=== PATIENT | male | born 1980 | race Caucasian/White ===

== ENCOUNTER 2018-08-14 10:37 | Inpatient (IN) ==
--- NOTE | 2018-08-14 10:40 | Discharge Summary ---
<Cody Mesa - Last Filed: 08/14/18 12:11> Date of Encounter: 08/14/18 - Discharge Diagnosis (1) Arthritis of left hip Priority: Primary Status: Chronic (2) Status post total hip replacement, left Priority: Primary Status: Acute (3) Hypertension Priority: Secondary Status: Chronic Qualifiers: Hypertension type: unspecified Qualified Code(s): I10 - Essential (primary) hypertension (4) Obstructive sleep apnea Priority: Secondary Status: Chronic (5) History of pulmonary embolism Priority: Secondary Status: Resolved (6) History of anxiety Priority: Secondary Status: Chronic (7) History of depression Priority: Secondary Status: Chronic (8) History of suicidal ideation Priority: Secondary Status: Chronic (9) Morbid obesity with BMI of 40.0-44.9, adult Priority: Secondary Status: Chronic - Hospital Course Hospital course: Mr. Mulligan is a 38 year old male - Time Spent with Patient Total time spent providing and/or coordinating discharge services: - Discharge Medications Home Medications: Amlodipine Besylate/Benazepril [Lotrel 10-20 mg Capsule] 1 each PO DAILY 08/14/18 [History] Gabapentin [Neurontin] 800 mg PO TID 08/14/18 [History] HydrOXYzine Pamoate [Vistaril] 50 mg PO DAILY PRN 08/14/18 [History] Ibuprofen 800 mg PO TID PRN 08/14/18 [History] Lidocaine 4% CRM (LMX) [Lmx 4] 1 gm TP ONCE 08/14/18 [History] Montelukast Sodium [Singulair] 10 mg PO DAILY 08/14/18 [History] Morphine Sulfate [Arymo ER] 15 mg PO BID PRN 08/14/18 [History] Omeprazole [PriLOSEC] 20 mg PO DAILY 08/14/18 [History] OxyCODONE/APAP 7.5/325 [Percocet 7.5/325 MG] 1 each PO Q6HR PRN 08/14/18 [History] Potassium Chloride [Klor-Con 10] 10 meq PO DAILY 08/14/18 [History] hydroCHLOROthiazide [Hydrochlorothiazide] 12.5 mg PO DAILY 08/14/18 [History] Allergies/Adverse Reactions: Allergy/AdvReac Type Severity Reaction Status Date / Time divalproex sodium Allergy Vomiting Verified 08/14/18 11:15 [From [facility]] Primary care physician: Magen Ramírez MD - Patient Status Disposition: Home Health Service Condition: Good - Discharge Instructions Follow Up With: Magen Ramírez MD [Primary Care Provider] - <Yvonne Ballard - Last Filed: 08/15/18 13:32> Orders not resulted at time of discharge: Pending orders 08/14/18 13:44 Surgical Pathology [PTH] Routine 08/16/18 04:00 Basic Metabolic Panel AM 0400 Hemoglobin and Hematocrit [HEME] AM 0400 Date of Encounter: 08/15/18 Time of Encounter: 12:15 - Discharge Diagnosis (1) Status post total hip replacement, left Priority: Primary Status: Acute (2) Arthritis of left hip Priority: Primary Status: Chronic (3) History of anxiety Priority: Secondary Status: Chronic (4) History of depression Priority: Secondary Status: Chronic (5) History of suicidal ideation Priority: Secondary Status: Chronic (6) Hypertension Priority: Secondary Status: Chronic Qualifiers: Hypertension type: unspecified Qualified Code(s): I10 - Essential (primary) hypertension (7) Morbid obesity with BMI of 40.0-44.9, adult Priority: Secondary Status: Chronic (8) Obstructive sleep apnea Priority: Secondary Status: Chronic (9) History of pulmonary embolism Priority: Secondary Status: Resolved - Hospital Course Hospital course: Mr. Mulligan is a 38 year old male s/p Left Total Hip Replacment robotic-assisted 08/14/18 with history of HTN, BERTRAND, obesity, past history of depression/anxiety an d PE. He did have some postoperative bleeding from incision site which resolved after additional britney were added evening of surgery. Uneventful hospital course otherwise. He participated in therapy. Stable for discharge. Patient seen at bedside, without complaints. A&O x 3 Afebrile, vital signs stable. Labs reviewed. H/H 12.3/36.7 - stable, asymptomatic Pain control: adequate Participating in PT. All questions and concerns addressed. Educated on use of incentive spirometer. Encouraged ambulation and proper hydration. Patient educated on post-operative restrictions and post-operative care. Assessment and plan: Continue with postoperative care Discharge plan: Home , discharge today with home therapy. - Time Spent with Patient Total time spent providing and/or coordinating discharge services: Date of admission: 08/14/18 17:05 Primary care physician: Magen Ramírez MD Consults: 08/14/18 15:59 Consult to Nurse Navigator [CONS] Routine Comment: ortho navigator Consult to Occupational Therapy [CONS] Routine Comment: Evaluate, develop and implement POC Reason for Consult: total hip replacement Does patient have active BEDREST order?: No Is patient medically & hemodynamically stable?: Yes Consult to Physical Therapy [CONS] Routine Comment: Evaluate, develop and implement POC Reason for Consult: total hip replacement Does patient have active BEDREST order?: No Is patient medically & hemodynamically stable?: Yes Consult to Ball Worker [CONS] Routine Reason for SW Consult: post op joint replacement RT Post Op Consult [CONS] Routine Discharging clinician: Cody Mesa Anticipated date of discharge: 08/15/18 Labs on day of discharge: Labs from last 24 hours 08/15/18 08/15/18 08/14/18 05:07 05:07 14:22 Hgb 12.3 L 12.9 Hct 36.7 L 39.9 Sodium 140 Potassium 4.5 Chloride 109 H Carbon Dioxide 26 BUN 22 H Creatinine 0.83 Est GFR ( Amer) > 60 Est GFR (Non-Af Amer) > 60 BUN/Creatinine Ratio 27 H Glucose 143 H Calculated Osmolality 296 Calcium 8.8 - Impressions ITS Impressions Hip X-Ray 08/14/18 10:41 IMPRESSION: Status post left hip arthroplasty without evidence of acute postoperative complication. D/ / 08/14/2018 15:05:19 George Rascon MD / gonzález Interpreting Provider: George Rascon MD - Patient Status Functional capacity at discharge: uses cane/walker Overall status at discharge: patient is back to baseline - Diet and Activity Activity: as per physical therapy Diet: advance to your usual diet
[2018-08-14] MEDS ORDERED: Albuterol 2.5 MG/3 ML NEBULIZER IH ONE (10:51)
[2018-08-14] MEDS ORDERED: CeFAZolin Syr 3,000MG/30 ML 3,000 MG/30 ML SYRINGE IVPB ONE (10:51)
[2018-08-14] MEDS ORDERED: Famotidine 20 MG/2 ML VIAL IVP ONE (11:00)
[2018-08-14] MEDS ORDERED: Acetaminophen IV 1,000 MG/100 ML INFUS..BTL IVPB ONE (11:01)
[2018-08-14] MEDS ORDERED: Pregabalin 75 MG CAPSULE PO ONE (11:01)
[2018-08-14] MEDS: Ringers Solution, Lactated 1,000 ML IVC SCH ×2 (11:04→13:22)
[2018-08-14] MEDS ORDERED: Dexamethasone 4 MG/ML VIAL ONE (11:08)
[2018-08-14] MEDS ORDERED: *HR* FentaNYL (PF) 100 MCG/2 ML VIAL ONE (11:08)
[2018-08-14] MEDS ORDERED: *HR* Succinylcholine 200 MG/10 ML VIAL IVP ONE (11:08)
[2018-08-14] MEDS ORDERED: Lidocaine -MPF 2% 2 ML VIAL ONE (11:08)
[2018-08-14] MEDS ORDERED: *HR* Propofol 200 MG/20 ML VIAL IVP ONE (11:08)
[2018-08-14] MEDS ORDERED: Ondansetron 4 MG/2 ML VIAL ONE (11:08)
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
[2018-08-14] MEDS ORDERED: *HR* Midazolam HCl 2 MG/2 ML VIAL ONE (11:13)
[2018-08-14] MEDS ORDERED: Lidocaine -MPF 4% 5 ML AMPUL ONE (11:56)
[2018-08-14] MEDS ORDERED: Ethanol\\Acetic Acid\\Na Ace\\Ben 1,000 ML IRRIG.SOLN IR ONE (12:00)
--- NOTE | 2018-08-14 12:05 | History & Physical Report ---
Date of Encounter: 08/14/18 Time of Encounter: 12:05 24 Hour HP Update - Instructions Instructions: If the History and Physical is less than 30 days old and was completed prior to A.M. admission and or procedure and has NOT been updated on calendar day of procedure please complete this update prior to performing procedure. - Update Patient reports changes in Medical Condition: No Changes in examination, assessment, or condition: No Changes in Medication: No Preop tests/diagnostics Reviewed: Yes Surgery Remains Indicated: Yes Consent for Planned Operative Procedure(s) Verified: Yes - Pre-Operative Checklist Preoperative Checklist Indicated: No Prophylactic Antibiotic Ordered: Yes Is VTE Prophylaxis Indicated?: Yes
[2018-08-14] MEDS ORDERED: *HR* Morphine Sulfate/PF 10 MG/10 ML AMPUL ONE (12:19)
--- NOTE | 2018-08-14 12:48 | Anesthesia Procedures ---
Date of Encounter: 08/14/18 Time of Encounter: 12:40 Procedures: Anesthesia - Epidural/Spinal Patient ID/Chart reviewed: Yes Patient examined: Yes Supplemental Oxygen Rate (L/min): 2 Sedation: Versed (mg): 2 Sedation: Fentanyl (mcg): 50 Site Prep: Sterile prep and drape, 0.5% Chlorhexidine/Alcohol Patient position: upright Local Anesthetic: Lidocaine 1% Amount of Local Anesthetic used: 5 Spinal Needle Gauge: 24 Spinal Dose: 2.5 ml of 0.5% bupivacaine with 150 mcgs duramorph Procedure: left hip arthroplasty
[2018-08-14] MEDS ORDERED: Propofol 500 MG/50 ML INFUS..BTL ONE (12:51)
[2018-08-14] MEDS ORDERED: *HR* PHENYLEPHRINE 1,000 MCG/10 ML SYRINGE IVP ONE (13:13)
[2018-08-14] MEDS ORDERED: EPHEDrine 50 MG/ML VIAL ONE (13:19)
[2018-08-14] MEDS ORDERED: Ondansetron 4 MG/2 ML VIAL IVP ONE (13:27)
[2018-08-14] MEDS ORDERED: *HR* Promethazine 25 MG/ML VIAL IVP PRN (13:27)
[2018-08-14] MEDS ORDERED: *HR* OxyCODONE Immed Rel 5 MG TABLET PO PRN ×3 (13:27→15:59)
[2018-08-14] MEDS ORDERED: *HR* Meperidine 25 MG/ML SYRINGE IVP PRN (13:27)
--- NOTE | 2018-08-14 14:01 | Orthopedic Operative Note ---
Date of procedure: 08/14/18 Pre-op diagnosis: Left hip arthritis/avascular necrosis Post-op diagnosis: same Procedure: Procedure: Left Total Hip Replacment robotic-assisted Estimated blood loss: 200 cc Hardware: Metal and polyethylene replacement. Lignum DM Cup: 58 cup Femoral 10 size stem Head: 0 head with Bethany Procedural Notes: Grade 4 arthritic changes femoral head acetabular socket, procedure performed with robotic assistance. 2 mm short operative versus nonoperative as measured by preoperative CT Operative procedure: The patient was brought to the operating room and placed on the operating room table. After general anesthesia was administered the patient was placed in the lateral decubitus position with the operative leg up. All pressure points were padded appropriately and the head was stabilized in the neutral position. The operative extremity was prepped and draped in the sterile surgical fashion patient received IV antibiotic prior to skin incision. 3 Steinmann pins were placed in the iliac crest 3 cm proximal to the anterior superior iliac spine this was for the robotic-assisted sensor. This was done through a small 2 cm incision. A standard posterior approach is made to the operative hip, the i ncision was made through the skin and subcutaneous tissue hemostasis was obtained with Bovie cautery. Using careful sharp dissection the fascia was identified and incised exposing the external rotators. The greater trochanter was marked, and length was measured at this time utilizing robotic assistance. The external rotators were released off the greater trochanter and tagged with #2 FiberWire suture. The capsule was T'd open and the hip was brought into internal rotation. Patient noted to have grade 4 arthritic changes femoral head. The femoral neck cut was made at the appropriate level roughly 15 mm proximal to the lesser trochanter aced on preoperative templating. An anterior capsulotomy was performed for the anterior retractor. Soft tissues removed from the acetabulum. Patient noted to have grade 4 arthritic changes acetabulum. The acetabulum reference point was confirmed. The acetabulum was then mapped with robotic assistance. Based on the preoperative plan the acetabulum was reamed in one step with a 57 reamer. The 58 acetabulum was impacted with robotic assistance and 50 degrees of abduction and 14 degrees of anteversion. The hip was brought back in to internal rotation and prepared with the box truck driver followed by the canal finder followed by the reaming process to a size 9/10 broaching process in 20 degrees anteversion. It was broached up to the appropriate size 10 Trial reduction revealed leg lengths close to normal. The femoral implant was impacted in place in 20 degrees of anteversion. Trial reduction found the hip to be stable with 0 head and Bethany. The trials were removed and the real implants were impacted in place. The hip was reduced, patient had robotic confirmed leg length of 9 mm longer than the contralateral side. The hip had excellent stability with forward flexion to 90 degrees adduction of 30 degrees and internal rotation of 60 degrees. The hip had no shuck. The hip sat with an antibacterial solution. It was irrigated out with 2 L of pulse irrigation. The Steinmann pins were removed. The deep tissue was irrigated and closed deep with #1 PDS suture superficially with 0 PDS suture and skin was closed with Dermabond and zip tie. The patient was placed in a sterile dressing and abduction pillow. The patient was extubated and transferred to the recovery room in stable condition. Anesthesia: spinal Surgeon: Cody Mesa Was there an content assistant present: No Estimated blood loss (cc): 200 Condition: stable Disposition: PACU
[2018-08-14] MEDS: *HR* HYDROmorphone (PF) 1 MG/ML SYRINGE IVP PRN ×3 (14:35→14:57)
[2018-08-14 14:47] LABS: Hematocrit 39.9 % (37.5-50.1); Hemoglobin 12.9 g/dL (12.9-16.9)
--- NOTE | 2018-08-14 15:21 | Anesthesia Evaluation Post Op ---
Date of Encounter: 08/14/18 Time of Encounter: 15:20 - Vital Signs Vital Signs: Vital Signs/O2 Sat, Most Current Temp Pulse Resp BP Pulse Ox 98.5 F 79 16 144/65 97 08/14/18 15:17 08/14/18 15:17 08/14/18 15:17 08/14/18 15:17 08/14/18 15:17 - Lungs Lungs: Clear Ascult./Percussion - Airway Airway: Non-obstructed - Cardiovascular Regular Rate - Mental Status Mental Status: Alert & Oriented, Answers Appropriately - Pain Pain Scale: 5 Pain Scale used: Numeric (1 - 10) - Nausea Vomiting Nausea Vomiting: Not Present - Hydration Hydration: Ice chips, Has not voided - Discharge PostOp Status: Transfer Patient to floor
[2018-08-14] MEDS ORDERED: MOM Conc 10 ML UD.LIQ PO PRN (15:59)
[2018-08-14] MEDS ORDERED: Ondansetron 4 MG/2 ML VIAL IVP PRN (15:59)
[2018-08-14] MEDS ORDERED: Sennosides 8.6 MG TABLET PO PRN (15:59)
[2018-08-14] MEDS ORDERED: Lidocaine 4% CREAM (LMX) 5 GM TP SCH (15:59)
[2018-08-14] MEDS ORDERED: Ringers Solution, Lactated 1,000 ML IVC SCH (15:59)
[2018-08-14] MEDS ORDERED: *HR* Morphine Sulfate SR (12 HR) 15 MG TABLET.ER PO PRN (15:59)
[2018-08-14] MEDS ORDERED: Temazepam 15 MG CAPSULE PO PRN (15:59)
[2018-08-14] MEDS ORDERED: Naloxone 0.4 MG/ML INJ IVP PRN (15:59)
[2018-08-14] MEDS ORDERED: hydrOXYzine pamoate 25 MG CAPSULE PO PRN (15:59)
[2018-08-14] MEDS ORDERED: CeFAZolin Syr 3,000MG/30 ML 3,000 MG/30 ML SYRINGE IVPB SCH (16:00)
[2018-08-14] MEDS: Nicotine 21 MG PATCH.TD24 TD SCH (17:43)
[2018-08-14] MEDS: Ibuprofen 800 MG TABLET PO SCH ×2 (17:44→21:31)
[2018-08-14] MEDS: Ascorbic Acid 500 MG TABLET PO SCH (17:44)
[2018-08-14] MEDS: *HR* Enoxaparin 30 MG/0.3 ML SYRINGE SQ SCH (17:48)
[2018-08-14] MEDS: Gabapentin 400 MG CAPSULE PO SCH ×2 (17:54→21:31)
[2018-08-14] MEDS: *HR* OxyCODONE Immed Rel 15 MG TABLET PO PRN ×2 (17:54→21:30)
[2018-08-14] MEDS ORDERED: *HR* Enoxaparin 30 MG/0.3 ML SYRINGE SQ SCH (18:00)
[2018-08-14] MEDS ORDERED: Ketorolac 15 MG/ML VIAL IVP PRN (18:15)
[2018-08-14] MEDS: ceFAZolin sodium 3,000 MG in 0.9 % Sodium Chloride 100 ML IVPB SCH (20:36)
[2018-08-15] MEDS: ceFAZolin sodium 3,000 MG in 0.9 % Sodium Chloride 100 ML IVPB SCH (03:02)
[2018-08-15] MEDS: *HR* OxyCODONE Immed Rel 15 MG TABLET PO PRN ×3 (03:04→13:57)
[2018-08-15] MEDS: *HR* Enoxaparin 30 MG/0.3 ML SYRINGE SQ SCH (05:17)
[2018-08-15 05:37] LABS: Hematocrit 36.7 % (37.5-50.1); Hemoglobin 12.3 g/dL (12.9-16.9)
[2018-08-15 05:59] LABS: BUN/Creatinine Ratio 27 (6-26); Blood Urea Nitrogen 22 mg/dL (6-20); Calcium 8.8 mg/dL (8.6-10.3); Carbon Dioxide 26 mEq/L (23-29); Chloride 109 mEq/L (98-107); Glucose 143 mg/dL (70-105); Osmolality,Calculated 296 (280-300); Potassium 4.5 mEq/L (3.5-5.1); Sodium 140 mEq/L (136-145); eGFR For Non-African Americans > 60 (> 60)
[2018-08-15] MEDS: Nicotine 21 MG PATCH.TD24 TD SCH (08:27)
[2018-08-15] MEDS: Ibuprofen 800 MG TABLET PO SCH ×2 (08:28→13:57)
[2018-08-15] MEDS: Ascorbic Acid 500 MG TABLET PO SCH (08:29)
[2018-08-15] MEDS ORDERED: NON-FORMULARY MEDICATION 1 EACH EACH (Amlodipine Besylate/Benazepril [Lotrel 10-20 Mg Caps PO SCH (09:00)
[2018-08-15] MEDS ORDERED: Multivit/Ca/Min/Fe/FA 1 TAB TABLET PO SCH (09:00)
[2018-08-15] MEDS ORDERED: hydroCHLOROthiazide 25 MG TABLET PO SCH (09:00)
[2018-08-15] MEDS ORDERED: Lisinopril 20 MG TABLET PO SCH (09:00)
[2018-08-15] MEDS ORDERED: amLODIPine 5 MG TABLET PO SCH (09:00)
[2018-08-15] MEDS: Gabapentin 400 MG CAPSULE PO SCH (10:22)
[2018-08-15 10:56] VITALS: BP 129/74
[2018-08-15] MEDS ORDERED: ceFAZolin sodium 3,000 MG in 0.9 % Sodium Chloride 100 ML IVPB ONE (11:09)
--- NOTE | 2018-08-15 13:19 | Physician Discharge Referral ---
Home Health/Hosp Referral Info Transfer to: Home Health Attending Provider: Moshe - Diagnosis (1) Status post total hip replacement, left Priority: Primary Status: Acute (2) Arthritis of left hip Priority: Primary Status: Chronic (3) History of anxiety Priority: Secondary Status: Chronic (4) History of depression Priority: Secondary Status: Chronic (5) History of suicidal ideation Priority: Secondary Status: Chronic (6) Hypertension Priority: Secondary Status: Chronic (7) Morbid obesity with BMI of 40.0-44.9, adult Priority: Secondary Status: Chronic (8) Obstructive sleep apnea Priority: Secondary Status: Chronic (9) History of pulmonary embolism Priority: Secondary Status: Resolved - Respiratory Orders None Smoking Cessation: Smoking cessation has been advised. For more information, call the [place] Tobacco Quit Line at 6-101-UOIP-NOW. - Diet/Nutrition Diet/Nutrition Orders: Regular - Activity Activity Orders: Up ad mateo, Ambulate, Chair, Walker Activity: List: Opsite dressing, leave intact until first post-operative visit. If dressing becomes >50% saturated, contact office, remove dressing and place appropriate dressing in its place. Do not allow for dressing to get wet. Zipline/Sabattus in place, plan to remove at post-operative day #14-16. Total Joint Precautions x 6 weeks Apply cold therapy wrap 3-6x/day for 20 minutes at a time. Encourage ambulation throughout the day Use Incentive spirometer 10x/hour. Elevate affected extremity above heart as tolerated. Brace: Wear hip abductor brace at night x 6 weeks. - Services Needed Following services are medically necessary services: Nursing, Home Health Aide, Physical Therapy, Occupational Therapy - Transfer Medications Home Medications: Amlodipine Besylate/Benazepril [Lotrel 10-20 mg Capsule] 1 each PO DAILY 08/14/18 [History] Gabapentin [Neurontin] 800 mg PO TID 08/14/18 [History] HydrOXYzine Pamoate [Vistaril] 50 mg PO DAILY PRN 08/14/18 [History] Ibuprofen 800 mg PO TID PRN 08/14/18 [History] Lidocaine 4% CRM (LMX) [Lmx 4] 1 gm TP ONCE 08/14/18 [History] Montelukast Sodium [Singulair] 10 mg PO DAILY 08/14/18 [History] Morphine Sulfate [Arymo ER] 15 mg PO BID PRN 08/14/18 [History] Omeprazole [PriLOSEC] 20 mg PO DAILY 08/14/18 [History] OxyCODONE/APAP 7.5/325 [Percocet 7.5/325 MG] 1 each PO Q6HR PRN 08/14/18 [History] Potassium Chloride [Klor-Con 10] 10 meq PO DAILY 08/14/18 [History] hydroCHLOROthiazide [Hydrochlorothiazide] 12.5 mg PO DAILY 08/14/18 [History] Allergies/Adverse Reactions: Allergy/AdvReac Type Severity Reaction Status Date / Time divalproex sodium Allergy Vomiting Verified 08/14/18 11:15 [From [facility]] Certification: Further, I certify that my clinical findings support that this patient is homebound (i.e. absences from home require considerable and taxing effort and are for medical reasons or [facility] or infrequently or short duration when for other reasons) because: Homebound Reason: Post-surgery restriction and or conditions limit ability to leave home Attestation: My signature below is to certify that this patient is under my care and that I, or nurse practitioner, or a physician assistant womens volleyball coach working with me, has a [id number] encounter with this patient.
--- NOTE | 2018-08-15 14:04 | Orthopedics Progress Note ---
Date of Encounter: 08/15/18 Time of Encounter: 08:00 - Assessment and Plan (1) Status post total hip replacement, left Current Visit: Yes Status: Acute Continue with post-operative plan. D/C today with Labs stable. Vitals stable. Vital Signs Temp Pulse Resp BP Pulse Ox 08/15/18 10:55 98.3 F 89 18 129/74 96 08/15/18 06:47 97.9 F 87 16 122/80 94 08/15/18 04:03 97.5 F L 86 16 124/81 97 08/14/18 22:58 98.3 F 101 15 118/57 93 08/14/18 19:38 98.2 F 105 17 108/70 95 08/14/18 17:55 97.9 F 94 106/66 92 08/14/18 16:45 98.0 F 80 126/77 95 08/14/18 16:15 97.7 F 83 16 118/67 95 08/14/18 15:45 98.8 F 81 16 113/68 96 08/14/18 15:27 98.3 F 73 16 124/75 96 08/14/18 15:17 98.5 F 79 16 144/65 97 08/14/18 15:07 98.1 F 78 16 123/78 96 08/14/18 14:57 97.8 F 74 16 129/76 96 08/14/18 14:47 68 16 126/70 96 08/14/18 14:37 98.1 F 77 16 126/76 99 08/14/18 14:27 98.4 F 75 16 113/69 95 08/14/18 14:17 83 18 107/67 75 08/14/18 14:07 97.2 F L 87 16 110/57 95 Intake and Output 08/14/18 08/15/18 08/15/18 23:59 07:59 15:59 Intake Total 400 / 400 480 / 480 Output Total 350 / 350 750 / 750 350 / 350 Balance 50 / 50 -750 / -750 130 / 130 Intake: IV Fluids 100 / 100 Ancef 3,000 MG In 0.9 % Sodium 100 / 100 Chloride 100 ML @ 200 mls/hr IVPB Q8H [facility] Rx#:[id number] Oral 300 / 300 480 / 480 Output: Urine 350 / 350 750 / 750 350 / 350 Other: Meal Lunch Percent of Meal Consumed 100% 100% Short CBC 08/15/18 08/14/18 Range/Units 05:07 14:22 Hgb 12.3 L 12.9 (12.9-16.9) g/dL Hct 36.7 L 39.9 (37.5-50.1) % BMP 08/15/18 Range/Units 05:07 Sodium 140 (136-145) mEq/L Potassium 4.5 (3.5-5.1) mEq/L Chloride 109 H (98-107) mEq/L Carbon Dioxide 26 (23-29) mEq/L BUN 22 H (6-20) mg/dL Creatinine 0.83 (0.70-1.30) mg/dL Glucose 143 H (70-105) mg/dL Calcium 8.8 (8.6-10.3) mg/dL Subjective Principal diagnosis: s/p Left THR Interval history: s/[ Left THR 08/14 Patient doing well, pain controlled. Chronic pain noted. A&Ox 3 , no acute distress Mimi placed on 08/14. No active bleeding currently. Pressure dressing removed and to be re-applied. Afebrile, Vitals stable LLE: No swelling, calf tightness but no pain or erythema noted. NV intact distall Dressing was 25% saturated with blood. Objective Vital signs: Vital Signs Temp Pulse Resp BP Pulse Ox 08/15/18 10:55 98.3 F 89 18 129/74 96 08/15/18 06:47 97.9 F 87 16 122/80 94 08/15/18 04:03 97.5 F L 86 16 124/81 97 08/14/18 22:58 98.3 F 101 15 118/57 93 08/14/18 19:38 98.2 F 105 17 108/70 95 08/14/18 17:55 97.9 F 94 106/66 92 08/14/18 16:45 98.0 F 80 126/77 95 08/14/18 16:15 97.7 F 83 16 118/67 95 08/14/18 15:45 98.8 F 81 16 113/68 96 08/14/18 15:27 98.3 F 73 16 124/75 96 08/14/18 15:17 98.5 F 79 16 144/65 97 08/14/18 15:07 98.1 F 78 16 123/78 96 08/14/18 14:57 97.8 F 74 16 129/76 96 08/14/18 14:47 68 16 126/70 96 08/14/18 14:37 98.1 F 77 16 126/76 99 08/14/18 14:27 98.4 F 75 16 113/69 95 08/14/18 14:17 83 18 107/67 75 08/14/18 14:07 97.2 F L 87 16 110/57 95 Intake and Output 08/14/18 08/15/18 08/15/18 23:59 07:59 15:59 Intake Total 400 / 400 480 / 480 Output Total 350 / 350 750 / 750 350 / 350 Balance 50 / 50 -750 / -750 130 / 130 Intake: IV Fluids 100 / 100 Ancef 3,000 MG In 0.9 % Sodium 100 / 100 Chloride 100 ML @ 200 mls/hr IVPB Q8H [facility] Rx#:[id number] Oral 300 / 300 480 / 480 Output: Urine 350 / 350 750 / 750 350 / 350 Other: Meal Lunch Percent of Meal Consumed 100% 100% - Labs CBC & BMP: 08/15/18 05:07 08/15/18 05:07 Labs: Abnormal lab results Hgb 12.3 g/dL (12.9-16.9) L 08/15/18 05:07 Hct 36.7 % (37.5-50.1) L 08/15/18 05:07 Chloride 109 mEq/L (98-107) H 08/15/18 05:07 BUN 22 mg/dL (6-20) H 08/15/18 05:07 BUN/Creatinine Ratio 27 (6-26) H 08/15/18 05:07 Glucose 143 mg/dL (70-105) H 08/15/18 05:07 Consult Discharge Plan - Plan Referrals: Magen Ramírez MD [Primary Care Provider] -
--- NOTE | 2018-08-15 14:05 | Event Note ---
Date of Encounter: 08/14/18 Time of Encounter: 18:00 Bleeding noted, britney placed. Bleeding stopped Chronic pain - added Flexeril and Toradol for pain control will need OP RX for these
== END 2018-08-15 14:58 | disposition home health service (06) | DRG 301 ==
LOC: SAMDAY 10:37 → 3NENU 17:05
PROVIDERS: ADMIT Orthopaedic Surgery; ATTEND Orthopaedic Surgery